=== PATIENT | female | born 1945 | race Caucasian/White ===

== ENCOUNTER → 2023-06-11 09:55 | Outpatient (CLI) | payer MEDICARE, SELFPAY ==
--- NOTE | 2023-06-11 09:56 | DI.US.S_ITS ---
ULTRASOUND OF LEFT BREAST AND AXILLA: 06/11/2023 CLINICAL: Palpable left breast lump. Comparison is made to exam dated: 06/11/2023 mammogram - [facility]. Color flow and real-time ultrasound of the left breast axilla were performed. Kenny scale images of the real-time examination were reviewed. There is a 2.2 cm x 1.4 cm x 1.9 cm wider than tall irregular mass in the left breast at 2 o'clock middle depth 4 cm from the nipple. This irregular mass is hypoechoic with an echogenic boundary. This correlates as palpated, with mammography findings, and area of clinical concern. Color flow imaging demonstrates that there is vascularity present. No significant abnormalities were seen sonographically in the left axilla. IMPRESSION: HIGHLY SUGGESTIVE OF MALIGNANCY The 2.2 cm x 1.4 cm x 1.9 cm wider than tall irregular mass in the left breast is highly suggestive of malignancy. No sonographic abnormalities identified in the axilla. No axillary adenopathy. An ultrasound guided biopsy is recommended. Findings and recommendations were discussed with the patient by Dr. Fletcher during today's examination. This exam was interpreted at Station ID: [id number]. Electronically Signed By: Dionisio Pack M.D. aty/:06/11/2023 11:29:24 letter sent: Biopsy Required Ultrasound BI-RADS: 5 Highly suggestive of malignancy
--- NOTE | 2023-06-11 09:56 | DI.MG.S_ITS ---
BILATERAL DIGITAL DIAGNOSTIC MAMMOGRAM 3D/2D: 06/11/2023 CLINICAL: Left breast lump. Baseline. No prior exams were available for comparison. There are scattered areas of fibroglandular density in both breasts (category b / 25%-50% glandular tissue). There is a 2.1 cm x 1.6 cm irregular high density mass with an indistinct margin and coarse heterogeneous calcifications in the left breast at 2 o'clock middle depth. No other significant masses, calcifications, or other findings are seen in either breast. IMPRESSION: INCOMPLETE: NEEDS ADDITIONAL IMAGING EVALUATION The 2.1 cm x 1.6 cm irregular high density mass in the left breast is indeterminate. An ultrasound is recommended for further evaluation and is scheduled to immediately follow this examination. Based on the Tyrer Cuzick model (a risk assessment model) the patient's lifetime risk is 4.3% and her 10 year risk is 0.0%. According to the ACR, ACS, and NCCN guidelines, an annual breast MRI exam along with mammogram is recommended if the patient's lifetime risk is 20% or greater. This exam was interpreted at Station ID: [id number]. NOTE: For mammograms, a report in lay terms will be sent to the patient. Approximately 15% of breast malignancies will not be visualized mammographically. In the management of a palpable breast mass, a negative mammogram must not discourage biopsy of a clinically suspicious lesion. Electronically Signed By: Dionisio Pack M.D. aty/:06/11/2023 11:25:53 ACR BI-RADS Category 0: Incomplete [id number]
== END ==
PROVIDERS: PCP Physician Assistant Medical; Referring Provider Physician Assistant Medical; Visit Provider Physician Assistant Medical
DX: N63.21 Unspecified lump in the left breast, upper outer quadrant (principal); R92.8 Other abnormal and inconclusive findings on diagnostic imaging of breast
CPT/HCPCS: 76642; 77066; G0279

== ENCOUNTER → 2023-06-16 12:32 | Outpatient (CLI) | payer MEDICARE, SELFPAY ==
--- NOTE | 2023-06-16 | PATH_ITS ---
[facility] Accession Number: [id number] No. of containers..01 Tissue . 01 Material submitted: . breast - LEFT BREAST MASS 2:00 4 CMFN . 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 - Lambert score: 6 out of 9 possible (histologic=3, nuclear=2, and mitotic index=1). - In situ carcinoma: Not identified. - Lymphovascular invasion: Not identified. - Greatest linear extent of invasive carcinoma: 0.4 cm, as measured from the glass slide. - Calcifications: Not identified. - Predictive markers: Estrogen and progesterone receptors positive, and HER-2 negative for overexpression (please see comment for additional parameters). [facility] 06/19/2023 1644 Local . 01 Comment: Predictive marker immunohistochemical studies are performed on block A1 with the invasive carcinoma showing the following results: . Estrogen receptor (SP1): Positive (100%, strong intensity). Progesterone receptor (1E2): Positive (80%, intermediate intensity). Her2 (4B5): Negative for overexpression (1+). . Internal controls for ER and MA are not present; false negative results cannot be excluded. Cold ischemic time not provided. The scoring criteria for breast biomarkers by immunohistochemistry is based on the ASCO/CAP guidelines (Chelsie AC et al, J Clin Oncol: 2018 May 12;36(20):7518-7088 and Caity MARTIN et al, Arch Pathol Lab Med: 2009;134(6):907-22). Deparaffinized sections of formalin fixed tissue (along with appropriate positive controls) are incubated with the above antibody(s). Using the automated [place] stainer, tissue is incubated with the designated antibody which is then localized by a non-biotin, dual polymer detection system. The external controls are reviewed for appropriate reactivity and found to be adequate. Results on the target cell population are indicated above. These tests have not been validated on decalcified tissue. This test was developed and its performance characteristics determined by [employer]. It has not been cleared or approved by the U.S. Food and Drug Administration. The FDA has determined that such clearance or approval is not necessary. This test is used for clinical purposes. It should not be regarded as investigational or for research. . Note: The results of this case are verbally provided by Dr. Lopes to [facility] on 06/18/2023 at 3:20 PM. . 01 Electronically signed: . Yancy Lopes MD, Pathologist NPI- [id number] . 01 Gross description: . The specimen is received in formalin labeled with the patient's name, , and BX breast consists of multiple yellow to del cid soft tissue fragments aggregating to 1.6 x 1.0 x 0.2 cm. The specimen is inked blue, and submitted entirely in cassette A1. . The specimen was removed on 06/16/2023 at 1341; time in formalin not provided; cold ischemic time cannot be calculated; and total fixation time is approximately 28 hours. ([id number]) /MRV 06/17/2023 [facility] . 01 Pathologist provided ICD-10: C50.912 . 01 CPT . 554201, 430917, [id number], [id number] Specimen Comment: A courtesy copy of this report has been sent to [phone] Performed at: 01 [facility] [address] [place] [address], [place], [place] [id number] MD Mamadou Lee MD Phone: [phone]
--- NOTE | 2023-06-16 | DI.MG.S_ITS ---
UNILATERAL LEFT DIGITAL DIAGNOSTIC MAMMOGRAM 3D/2D: 06/16/2023 CLINICAL: Post clip placement. Comparison is made to exams dated: 06/11/2023 mammogram, 06/16/2023 ultrasound biopsy, and 06/11/2023 ultrasound - [facility]. There are scattered areas of fibroglandular density in the left breast (category b / 25%-50% glandular tissue). There is a marker clip in the appropriate position in the left breast at 2 o'clock middle depth. IMPRESSION: POST PROCEDURE MAMMOGRAM FOR MARKER PLACEMENT There was a successful marker clip placement in the left breast middle depth. Based on the Tyrer Cuzick model (a risk assessment model) the patient's lifetime risk is 4.3% and her 10 year risk is 0.0%. According to the ACR, ACS, and NCCN guidelines, an annual breast MRI exam along with mammogram is recommended if the patient's lifetime risk is 20% or greater. This exam was interpreted at Station ID: [id number]. NOTE: For mammograms, a report in lay terms will be sent to the patient. Approximately 15% of breast malignancies will not be visualized mammographically. In the management of a palpable breast mass, a negative mammogram must not discourage biopsy of a clinically suspicious lesion. Electronically Signed By: Ford saldivar/paul:06/16/2023 15:49:02 ACR BI-RADS Category Post-procedure mammogram for marker placement
--- NOTE | 2023-06-16 12:33 | DI.US.S_ITS ---
ULTRASOUND GUIDED BIOPSY LEFT BREAST USING VACUUM DEVICE WITH MARKING DEVICE INSERTED AND POST DIGITAL MAMMOGRAPHIC AND ULTRASOUND IMAGIN06/16/2023 CLINICAL: Left breast mass. PATIENT CONSENT: Risks (minor bleeding, infection, vasovagal reaction and repeat procedure), benefits and alternatives were explained to the patient and written informed consent was obtained. Correlation is made to exams dated: 06/11/2023 ultrasound and 06/11/2023 mammogram - [facility]. An ultrasound guided biopsy using real-time ultrasound was performed for the 2.2 cm x 1.4 cm x 1.9 cm mass located in the left breast at 2 o'clock middle depth 4 cm from the nipple. This was described on the previous mammography and ultrasound reports. The skin was prepped in the usual manner. Local anesthetic was administered to the access site. A skin carla was made in the breast. The abnormality was approached from the lateral aspect. A 13 gauge biopsy needle was placed adjacent to the abnormality under ultrasound guidance. Once the needle was documented to be in the correct location, four specimens were obtained using the Mammotome biopsy system. The patient received additional local anesthetic during the procedure. A clip was inserted into the biopsy cavity. A sterile dressing was applied to the access site. Post procedure digital mammographic and ultrasound imaging demonstrates the location device at the targeted area. The specimens were sent to the laboratory for pathological analysis. IMPRESSION: ULTRASOUND GUIDED BIOPSY Ultrasound guided biopsy of the 2.2 cm x 1.4 cm x 1.9 cm mass in the left breast at 2 o'clock middle depth 4 cm from the nipple was successful with no apparent post procedure complications. Pathology of left breast mass at 2 o'clock, 4 cm from the nipple revealed invasive ductal carcinoma (ER/LA positive, HER2 negative), which is concordant with imaging. Recommend oncology/surgery consultation. This exam was interpreted at Station ID: [id number]. Ford saldivar,kemi/:06/23/2023 09:28:19 Entry: - 06/23/2023 09:28:19
== END ==
PROVIDERS: PCP Physician Assistant Medical; Referring Provider Physician Assistant Medical; Visit Provider Physician Assistant Medical
DX: C50.412 Malignant neoplasm of upper-outer quadrant of left female breast (principal); Z17.0 Estrogen receptor positive status [ER+]
CPT/HCPCS: 19083; 77065

== ENCOUNTER → 2025-05-30 11:00 | Outpatient (CLI) | payer OTHER, SELFPAY ==
[2025-05-30 20:09] LABS: Clostridium Difficile Tox PCR Negative for C. diff (Negative)
== END ==
PROVIDERS: PCP Physician Assistant Medical; Visit Provider Family Medicine
DX: R10.9 Unspecified abdominal pain (principal); R19.7 Diarrhea, unspecified; Z86.19 Personal history of other infectious and parasitic diseases
CPT/HCPCS: 87045; 87493